=== PATIENT | male | born 1955 | race Two or more races ===

== ENCOUNTER 2018-02-28 14:31 | Outpatient (CLI) | payer OTHER | END 2018-02-28 14:32 | disposition home or self-care (01) | LOC: SONOGRAMA 14:31 | DX: E04.8 Other specified nontoxic goiter (principal); E04.1 Nontoxic single thyroid nodule; E03.8 Other specified hypothyroidism ==

== ENCOUNTER 2022-08-15 09:04 | Outpatient (CLI) | payer OTHER | END 2022-08-15 09:29 | disposition home or self-care (01) | LOC: TOM 09:04 | PROVIDERS: ATTEND Internal Medicine Sports Medicine | DX: J01.80 Other acute sinusitis (principal) ==

== ENCOUNTER 2023-10-03 13:30 | Outpatient (CLI) | payer OTHER | END 2023-10-04 08:45 | disposition home or self-care (01) | LOC: SONOGRAMA 13:30 | PROVIDERS: ATTEND Internal Medicine Sports Medicine | DX: E04.1 Nontoxic single thyroid nodule (principal); E03.8 Other specified hypothyroidism ==